=== PATIENT | female | born 1985 | race Caucasian/White ===

== ENCOUNTER 2016-12-24 18:23 | Observation (INO) | payer BC ==
[~2016-12-24] VITALS: Ht 167.6 cm; Wt 107.5 kg
[~2016-12-24 18:23] MED LIST: CYCL10TA2 PO; NAPR500T PO; PROM25TA10 PO; SULF1TAB24 PO; TRAM-29 PO
--- NOTE | 2016-12-24 18:29 | ED.ADGEN ---
Past History Past Medical History: Anemia, Asthma, Depression, Hypothyroid, Other Past Surgical History: , Tubal ligation, Other Alcohol Use: Rarely Drug Use: None Adult General Chief Complaint Chief Complaint Suicidal ideation [facility] HPI Patient is a pleasant 31-year-old female with history of depression and cerebral palsy chronic lower leg pain presents with suicidal ideation with plan today. Her last several days patient has become increasing depressed over the sickness of her child is personally in the PICU. Patient is receiving therapy and treatment for cerebral palsy and depression to include electrocution therapy for her depression at [facility]. She is also on Librium and lithium to complain of her symptoms. She denies any changing of her medication doses she denies any financial or legal problems. She's not had any relationship problems with her family. At this time family is supportive and is one who called EMS which she stated her suicidal intent and plan to cut herself with razor blades. When EMS arrived she had razor blades in her hand. She has a history of prior psychiatric evaluation, admission and prior suicidal attempt. She has no firearms at home. Review of Systems Review of Systems Constitutional: Denies fever or chills complains of fatigue Eyes: Denies change in visual acuity, redness, or eye pain HENT: Denies nasal congestion or sore throat [] Respiratory: Denies cough or shortness of breath [] Cardiovascular: No additional information not addressed in HPI [] GI: Denies abdominal pain, nausea, vomiting, bloody stools or diarrhea [] : Denies dysuria or hematuria [] Musculoskeletal: Denies back pain or joint pain [] Integument: Denies rash or skin lesions [] Neurologic: Denies headache, focal weakness or sensory changes [] Endocrine: Denies polyuria or polydipsia [] Current Medications Current Medications Current Medications Medications (Trade) Dose Ordered Sig/Jos Eraul Start Time Stop Time Status Last Admin Dose Admin Sodium Chloride (Normal Saline Flush) 10 ml QSHIFT PRN 12/24/16 18:30 Allergies Allergies Allergies Coded Allergies Type Severity Reaction Last Updated Verified Penicillins Allergy Severe Anaphylaxis 01/25/16 Yes lidocaine Allergy Severe Anaphylaxis 01/25/16 Yes procaine Allergy Severe Anaphylaxis 01/25/16 Yes Physical Exam Physical Exam Constitutional: Well developed, well nourished, patient is sleepy but arousable nontoxic in appearance. HENT: Normocephalic, atraumatic, bilateral external ears normal, mucous members are dry. Eyes: PERRLA, EOMI, conjunctiva normal, no discharge. [] Neck: Normal range of motion, no tenderness, supple, no stridor. [] Cardiovascular:Heart rate regular rhythm, no murmur [] Lungs & Thorax: Bilateral breath sounds clear to auscultation [] Abdomen: Bowel sounds normal, soft, no tenderness, no masses, no pulsatile masses. [] Skin: Warm, dry, no erythema, no rash. No evidence of self-inflicted wounds or lacerations. Back: No tenderness, no CVA tenderness. [] Extremities: No tenderness, no cyanosis, no clubbing, ROM intact, no edema. [] Neurologic: Alert and oriented X 3, normal motor function, normal sensory function, no focal deficits noted. [] Psychologic: Patient has a blunted affect and seems depressed but has normal judgment. She is forthcoming with information and states no altered mental status she is awake alert and oriented 3. Current Patient Data Vital Signs Vital Signs Date Time Temp Pulse Resp B/P Pulse Ox O2 Delivery O2 Flow Rate FiO2 12/24/16 18:34 97.4 64 18 97 Room Air Lab Results Laboratory Tests Test 12/24/16 18:30 12/24/16 18:55 12/24/16 18:56 Urine Collection Type Unknown Urine Color Yellow Urine Clarity Hazy Urine pH 6.5 Urine Specific [place] 1.015 Urine Protein Neg (NEG-TRACE) Urine Glucose (UA) Negmg/dL (NEG) Urine Ketones (Stick) Negmg/dL (NEG) Urine Blood Neg (NEG) Urine Nitrite Neg (NEG) Urine Bilirubin Neg (NEG) Urine Urobilinogen Dipstick 1mg/dL (0.2 mg/dL) Urine Leukocyte Esterase Neg (NEG) Urine RBC 1-2/HPF (0-2) Urine WBC 5-10/HPF (0-4) Urine Squamous Epithelial Cells Many/LPF Urine Bacteria Mod/HPF (0-FEW) Urine Opiates Screen Neg (NEG) Urine Methadone Screen Neg (NEG) Urine Barbiturates Neg (NEG) Urine Phencyclidine Screen Neg (NEG) Urine Amphetamine/Methamphetamine Neg (NEG) Urine Benzodiazepines Screen Neg (NEG) Urine Cocaine Screen Neg (NEG) Urine Cannabinoids Screen Neg (NEG) Urine Ethyl Alcohol Neg (NEG) White Blood Count 11.1x10^3/uL (4.0-11.0) H Red Blood Count 5.02x10^6/uL (3.50-5.40) Hemoglobin 10.3g/dL (12.0-15.5) L Hematocrit 33.9% (36.0-47.0) L Mean Corpuscular Volume 68fL (79-100) L Mean Corpuscular Hemoglobin 21pg (25-35) L Mean Corpuscular Hemoglobin Concent 30g/dL (31-37) L Red Cell Distribution Width 17.5% (11.5-14.5) H Platelet Count 394x10^3/uL (140-400) Neutrophils (%) (Auto) 76% (31-73) H Lymphocytes (%) (Auto) 19% (24-48) L Monocytes (%) (Auto) 4% (0-9) Eosinophils (%) (Auto) 1% (0-3) Basophils (%) (Auto) 0% (0-3) Neutrophils # (Auto) 8.4x10^3uL (1.8-7.7) H Lymphocytes # (Auto) 2.1x10^3/uL (1.0-4.8) Monocytes # (Auto) 0.5x10^3/uL (0.0-1.1) Eosinophils # (Auto) 0.1x10^3/uL (0.0-0.7) Basophils # (Auto) 0.0x10^3/uL (0.0-0.2) Platelet Estimate Increased (ADEQUATE) Polychromasia Present Hypochromasia Mod Anisocytosis Slight Microcytosis Slight Salicylates Level 0.9mg/dL (2.8-20.0) L Salicylate Last Dose Date 12/24/16 Salicylate Last Dose Time 1200 Acetaminophen Level < 2.0mcg/mL (10-30) L Acetaminophen Last Dose Date 12/24/16 Acetaminophen Last Dose Time Unknown Ethyl Alcohol Level < 10mg/dL (0-10) POC Urine HCG, Qualitative hcg negative (Negative) EKG EKG [] Radiology/Procedures Radiology/Procedures [] Impressions: Depression with suicidal ideation and plan with attempt Course & Med Decision Making Course & Med Decision Making Pertinent Labs and Imaging studies reviewed. (See chart for details) [Patient with a stated suicidal plan or prior attempts high-risk behavior history depression with family concerning enough given her actions at home to report her to the emergency department and EMS evaluation. Patient admits that she still actively suicidal with request for admission to the hospital for treatment. Patient's labs are unremarkable lithium level still pending at this time] at this point patient is compliant she is eating without issue we will consult psychiatry for placement and assessment and inpatient facility. Time is approximately 845. Psychiatric facility return phone call at approximately 9: 30 but he does know that the psychiatric physician would be available to interview her 20 minutes after that. Psychiatrist called back approximately 10: 10 PM tonight and is presently interviewing the patient. He has been hemodynamic stable currently resting quietly sleeping the last hour. Time is 1020 Dr. ESTRADA agreed with the patient's need for admission given severity of symptoms specific plan threat as well as limited support at home. We will attempt to locate a facility to admit this patient. Patient is awaiting admission witting placement 7 hours here in the emergency department we will admit for observation here at our facility under the care of Dr. MCKAY. I'm is now 1:33 AM Final Impression Final Impression Suicidal ideation, acute adjustment disorder [] Problems: Dragon Disclaimer Dragon Disclaimer This electronic medical record was generated, in whole or in part, using a voice recognition dictation system. JAD GUO MD Dec 24, 2016 18:28
[2016-12-24] MEDS: 0.9 % SODIUM CHLORIDE 10 ML DISP.SYRIN. IV PRN (19:16)
[2016-12-24 19:19] LABS: AMPHETAMINE/METHAMPHETAMINE NEG (NEG); BARBITURATES NEG (NEG); BENZODIAZEPINES NEG (NEG); CANNABINOIDS NEG (NEG); COCAINE NEG (NEG); METHADONE NEG (NEG); OPIATES NEG (NEG); PHENCYCLIDINE NEG (NEG)
[2016-12-24 19:24] LABS: BASO % 0 % (0-3); EOS # 0.1 x10^3/uL (0.0-0.7); EOS % 1 % (0-3); HEMATOCRIT 33.9 % (36.0-47.0); HEMOGLOBIN 10.3 g/dL (12.0-15.5); LYMPH # 2.1 x10^3/uL (1.0-4.8); LYMPH % 19 % (24-48); MEAN CORPUSCULAR HEMOGLOBIN 21 pg (25-35); MEAN CORPUSCULAR HGB CONC 30 g/dL (31-37); MEAN CORPUSCULAR VOLUME 68 fL (79-100); MONO # 0.5 x10^3/uL (0.0-1.1); MONO % 4 % (0-9); NEUT # 8.4 x10^3uL (1.8-7.7); NEUT % 76 % (31-73); PLATELET COUNT 394 x10^3/uL (140-400); RED BLOOD COUNT 5.02 x10^6/uL (3.50-5.40); RED CELL DISTRIBUTION WIDTH 17.5 % (11.5-14.5); WHITE BLOOD COUNT 11.1 x10^3/uL (4.0-11.0)
[2016-12-24 19:33] LABS: ETHANOL < 10 mg/dL (0-10); SALIC 0.9 mg/dL (2.8-20.0)
[2016-12-24 19:36] LABS: ACETAMIN < 2.0 mcg/mL (10-30)
[2016-12-24 19:41] LABS: CLARITY,URINE HAZY; COLOR,URINE YELLOW
[2016-12-24 19:42] LABS: BACTERIA,URINE MOD /HPF (0-FEW); BILIRUBIN,URINE NEG (NEG); GLUCOSE,URINE NEG (NEG); NITRITE,URINE NEG (NEG); SQUAMOUS EPITHELIAL CELL,UR MANY /LPF; UROBILINOGEN,URINE 1 mg/dL (0.2 mg/dL)
--- NOTE | 2016-12-24 20:43 | ACF ---
Admission Criteria Forms PSYCHIATRIC DISORDERS Clinical Indications for Inpatient Care (Place 'X' for any and all applicable criteria): Ongoing inpatient care may be needed for ANY ONE of the following(1)(2)(3)(4)(6) (7)(8): [ ]I. Danger to self or others not manageable at lower level of care. [ ]II. Grave disability (eg, inability to perform self care necessary at lower level of care) [ ]III. Agitation or inappropriate behavior interfering with care for primary condition (eg, attempting to discontinue lines or drains prematurely, unable to cooperate with respiratory care) [ ]IV. Severe disability or disorder indicated by ALL of the following: [ ]a) Severe behavioral health disorder-related symptoms or condition indicated by ANY ONE of the following: [ ]i) Severe problem with cognition, memory, judgment, or impulse control [ ]ii) Severe clinical manifestations (eg, hallucinations, delusions, other acute psychotic symptoms, logan, extreme agitation or anxiety) [ ]b) Patient management at lower level of care is not feasible until acute intervention or modification is initiated. Extended stay beyond goal length of stay for the primary condition may be indicated when ANY ONE of the following is present: (1)(2)(3)(4): [ ]a) Patient is a danger to self or others and not manageable at lower level of care. [ ]b) Behavior crisis management, including physical or chemical restraints, is required and is not available at a lower level of care. [ ]c) Behavioral symptoms (e.g., agitation, somnolence, inappropriate behavior) are present, and are not manageable at a lower level of care. [ ]d) Patient cannot understand follow-up treatment and crisis plan. [ ]e) Provider and supports are not sufficiently available at lower level of care. [ ]f) Patient cannot participate (e.g., verify absence of plan for harm) and is in needed of monitoring. The original [employer] content created by [employer] has been revised. The portions of the content which have been revised are identified through the use of italic text or in bold, and [facility] has neither reviewed nor approved the modified material. All other unmodified content is copyright [facility]. Please see references footnoted in the original [facility] edition 2016 TANVIR SCHWARZ Dec 24, 2016 20:43
[2016-12-24 21:57] LABS: ANISOCYTOSIS SLIGHT; PLT ESTIMATE INCREASED (ADEQUATE)
[2016-12-24 21:58] LABS: HYPOCHROMIA MOD; MICROCYTOSIS SLIGHT; POLYCHROMASIA PRESENT
[2016-12-25 02:10] VITALS: BP 122/76
[2016-12-25 02:20] VITALS: BP 120/66
--- NOTE | 2016-12-25 02:28 | ACF ---
Admission Criteria Forms [facility] Clinical Indications for Admission to Inpatient Care (Place 'X' for any and all applicable criteria): Hospital admission is needed for appropriate care of the patient because of ANY ONE of the following[A] (3)(4)(5): [X]I. Inpatient behavioral care is needed as indicated by ALL of the following: [X]a) Treatment is needed because of patient risk due to ANY ONE of the following: [X]i) Imminent danger to self due to ANY ONE of the following ( 7)(8): [ ]1) Imminent risk for recurrence of a suicide attempt or act of serious self-harm as indicated by ALL of the following: [ ]A. Very recent suicide attempt or deliberate act of serious self-harm [ ]B. Absence of sufficient relief of the action' s precipitants [ ]2) Current plan for suicide or serious self-harm [X]3) Persistent thoughts of suicide or serious self- harm that cannot be adequately monitored at a lower level of care because of ANY ONE of the following: [ ]A. Insufficient behavioral care provider availability [ ]B. Inadequate patient support system [X]C. Patient characteristics such as high impulsivity or unreliability [ ]D. Ruminative flooding; uncontrollable and overwhelming profusion of negative thoughts [ ]E. Frantic hopelessness; fatalistic conviction that life will not improve along with oppressive sense of entrapment and doom [ ]F. Active substance use disorder is present [ ]G. Ready access to lethal means is present [ ]ii) Imminent danger to others due to ANY ONE of the following( 10)(11): [ ]1) Imminent risk for recurrence of an attempt to seriously harm another as indicated by ALL of the following: [ ]A. Very recent attempt to seriously harm another [ ]B. Absence of sufficient relief of the action' s precipitants [ ]2) Current plan for homicide or seriously harming another [ ]3) Command auditory hallucination for serious self harm to self or others [ ]4) Persistent thoughts of homicide or seriously harming another that cannot be adequately monitored at a lower level of care because of ANY ONE of the following: [ ]A. Insufficient behavioral care provider availability [ ]B. Inadequate patient support system [ ]C. Patient characteristics such as high impulsivity or unreliability [ ]D. Active substance use disorder is present [ ]E. Ready access to lethal means is present [ ]iii) Behavioral health disorder is present with ALL of the following: (12)(16)(17)(18): [ ]1) Severe psychiatric or behavioral symptoms are present , including ANY ONE of the following: [ ]A. Hallucinations that are very bothersome to patient or are associated with severe pressure to respond to voices(17)(18) [ ]B. Delusions that are very bothersome to patient or are associated with severe pressure to act on beliefs(17)(18) [ ]C. Disorganized speech that is almost impossible to follow(17)(18) [ ]D. Motor behavior that is almost constantly abnormal or bizarre or catatonic(17)(18) [ ]E. Severe negative symptoms (eg, severe decrease in facial expression or self-initiated behavior)(17)(18) [ ]F. Severe logan (eg, daily periods of extensive mood elevation or irritability)(19)(20)(21)(22) [ ]G. Severe depression (eg, daily symptoms of deep hopelessness)[C] [ ]H. Severe anxiety[D] [ ]I. Severe comorbid substance use disorder with inability to control use, intense withdrawal symptoms, or extreme negative impact on primary psychiatric disorder(2)(7)(25) [ ]J. Severe impairment in cognition, memory, judgment, or impulse control(26)(27) [ ]K. Severe impairment in behavior, including physical or verbal aggression, disruptive behaviors, or internal or external anger manifestations (eg, rumination or outbursts)(28) [ ]L. Other psychiatric symptoms which are acute or represent worsening over baseline (eg, hyperactivity, agitation, obsessions, or compulsions)(29)(30)(31) [ ]2) Severe dysfunction in daily living is present as indicated by ANY ONE of the following: [ ]A. Extreme deterioration in social interactions ( eg, threatening behaviors with little or no provocation) [ ]B. Complete withdrawal from all social interactions [ ]C. Complete neglect of self-care with associated impairment in physical status [ ]D. Extreme disruption in vegetative function (eg , life-sustaining functions such as eating) [ ]E. Complete inability to maintain any appropriate aspect of personal responsibility in any adult roles (eg, occupational, parental) [X]b) Treatment situation and needs are appropriate for level as indicated by ANY ONE of the following(13)(16): [ ]i) Patient unwilling to participate voluntarily and requires treatment (eg, legal commitment) in an involuntary unit [ ]ii) Voluntary treatment at lower level not feasible (e.g., very short-term crisis intervention or residential care unavailable or unacceptable for patient condition) [ ]iii) Need for physical restraint, seclusion, or other involuntary control (e.g., actively violent patient and adequate clinical rapport cannot be established to control violence) (25) [X]iv) [id number] medical or nursing care to address symptoms and initiate intervention is required; specific need has been identified [ ]II. Delirium as described by ANY ONE of the following (26)(27)(28): [ ]a) Delirium due to alcohol or sedative [B] withdrawal (16)(29)(30)( 31) [ ]b) Delirium of uncertain etiology that has not responded to appropriate treatment in emergency department or urgent care setting (32)(33) [ ]c) Delirium that prevents performance of a life-sustaining function (eg, feeding or hydrating oneself) (9) [ ]III. Administration of a somatic treatment that requires [id number] medical or nursing care because of a potential adverse physical effect or medical comorbidity(7) [ ]IV. Behavioral Health condition, symptom, or finding for which emergency and observation care have failed or are not considered appropriate The original [facility] content created by [employer] has been revised. The portions of the content which have been revised are identified through the use of italic text or in bold, and [facility] has neither reviewed nor approved the modified material. All other unmodified content is copyright [facility]. Please see references footnoted in the original [facility] edition 2016 Admission Criteria Met?: Yes TANVIR SCHWARZ Dec 25, 2016 02:28
[2016-12-25] MEDS: 0.9 % SODIUM CHLORIDE 10 ML DISP.SYRIN. IV PRN (04:27)
[2016-12-25 08:04] VITALS: BP 112/57
[2016-12-25] MEDS ORDERED: PRAZ1CAP2 PO (09:53)
[2016-12-25] MEDS ORDERED: ALPR0.5T6 PO ×2 (09:53)
[2016-12-25] MEDS ORDERED: LITH600C PO (09:54)
[2016-12-25] MEDS ORDERED: HYDR25CA75 PO (09:59)
[2016-12-25] MEDS ORDERED: LURA80TA PO (09:59)
[2016-12-25] MEDS ORDERED: GABA-585 PO (09:59)
[2016-12-25] MEDS ORDERED: CELE100C PO (10:01)
[2016-12-25] MEDS ORDERED: TIZA4CAP3 PO (10:01)
[2016-12-25] MEDS ORDERED: VILA10TA PO (10:12)
[2016-12-25] MEDS ORDERED: LEVO175T5 PO (11:00)
[2016-12-25 11:20] VITALS: BP 116/76
[2016-12-25 12:36] LABS: CREATININE 0.9 mg/dL (0.6-1.0); GFR 72.6; POTASSIUM 3.6 mmol/L (3.5-5.1)
--- NOTE | 2016-12-25 15:54 | HP ---
ADMIT DATE: 12/25/2016 HISTORY OF PRESENT ILLNESS: This is a 31-year-old female patient with a past medical history significant for depression, cerebral palsy, chronic lower leg pain, who presents to the Emergency Room with suicidal ideation with a plan. Over the last several days, the patient has become increasingly depressed over the sickness of her child, who is presently in the PICU at [facility]. She apparently receives her therapy and treatment for cerebral palsy and depression that include electroconvulsive therapy for her depression at [facility]. She is also on lithium. She apparently denied any change in her medication. Denies any financial or legal problem. She apparently does have a problem with her that she said that he is accusing her for the cause of the problem for her child, although according to the Emergency Room physician she has a very supportive family and her is the one who called the EMS. She stated her suicidal intent and plan to cut herself with a razor blade. When the emergency medical service personnel arrived, she has had razor blades in her hand. She apparently has had previous suicidal attempt. At that time, she did actually cut her wrist and was admitted to this [facility]. The patient admits that she is still actively suicidal; we will request for admission to a hospital for treatment. All her lab work including her lithium levels were within normal range and the patient apparently is compliant. She is eating without issues and apparently a psychiatrist was consulted and the psychiatrist called back approximately at after 10 p.m. and he apparently agreed with the patient's need for admission given the severity of her symptoms, specifically plan and threat as well as limited support at home and basically the patient was admitted for observation and awaiting for placement in an inpatient psychiatric unit. PAST MEDICAL HISTORY: Significant for depression, cerebral palsy, hypothyroidism, chronic lower extremity pain. PAST SURGICAL HISTORY: Significant for 2 C-sections. ALLERGIES: She is allergic to PENICILLIN, LIDOCAINE, and PROCAINE. MEDICATIONS: She is currently on the following medications: She is on alprazolam 0.5 mg b.i.d., alprazolam 0.5 mg at bedtime as needed, Celebrex 100 mg daily, gabapentin 100 mg at bedtime, hydroxyzine pamoate 25 mg 3 times a day, levothyroxine 175 mcg once a day, lithium carbonate 600 mg p.o. b.i.d., lurasidone 80 mg daily, prazosin 1 mg at bedtime, tizanidine 4 mg every 8 hours and Viibryd 20 mg daily. FAMILY HISTORY: She has 1 younger brother, who is healthy. Her father is alive at age of 56 and know to have hypertension. Mother is alive and known to have hypothyroidism. SOCIAL HISTORY: She is , has 4 children, one of them the youngest is adopted. She does not smoke, drink alcohol or use any recreational drugs. REVIEW OF SYSTEMS: As per history of present illness. PHYSICAL EXAMINATION: GENERAL: On examining her, she looked well and was clearly in no apparent respiratory distress, slightly pale, but not jaundiced, cyanosis, or thyromegaly. No jugular venous distension. No lower limb edema. VITAL SIGNS: Her heart rate was 64, blood pressure was 118/66, temperature was 97.4, respiratory rate was 18 and oxygen saturation was 98%. HEAD, EYES, EARS, NOSE AND THROAT: Showed normocephalic, atraumatic. NECK: Supple. HEART: Showed normal first and second heart sounds with no gallop, rub or murmur. CHEST: Clear to auscultation. No crepitation or rhonchi. ABDOMEN: Distended, soft, nontender. No guarding or rigidity. No organomegaly. All hernial orifices were intact. NEUROLOGIC: She is alert and oriented x 3, normal motor and sensory function. No focal neurological deficit. PSYCHOLOGICAL: The patient is blunted, obstructing and is very depressed. LABORATORY DATA: While in the Emergency Room, she has had lab work done that showed a white cell count of 11,100, hemoglobin 10, hematocrit 33, MCV 68 and platelet count of 397,000. Her chemistry showed a serum sodium 140, potassium 3.6, chloride 106, bicarbonate 25, anion gap of 9, BUN 7, creatinine 0.9, estimated GFR was 72 mL per minute. Her glucose was 97 and calcium was 9. Urinalysis was essentially unremarkable. Her urine test was negative. The urine was yellow, hazy with a pH of 6.5, specific gravity of 1.015. The urine was negative for protein, glucose, ketones, blood, nitrite and leukocyte esterase. There are 1-2 RBCs, 5-10 WBCs, moderate amount of bacteria. Her urine toxicology screen was negative. IMPRESSION: In summary, this is a 31-year-old female patient, who came in with suicidal ideation with plans to cut herself with razors. She has other medical problems that include cerebral palsy, severe depression, and hypothyroidism. PLAN: To obviously continue to observe her, await admission to an inpatient psychiatric for inpatient psychiatric stabilization. CORRIE MCKAY MD DR: CHRISTINE/kinsey JOB#: [id number] / [id number]
--- NOTE | 2016-12-25 18:03 | DS ---
DATE OF DISCHARGE: 12/25/2016 HOSPITAL COURSE: The patient is a 31-year-old female patient who was admitted for observation as she admits that she is actively suicidal and requested admission to hospital for treatment. She apparently has a plan to slit her wrist with razor blade and she was accepted at the [facility] inpatient psychiatric unit and will be transferred there this afternoon. PHYSICAL EXAMINATION: GENERAL: On examining her this afternoon, she looked well and was clearly in no apparent respiratory distress, slightly pale, but no jaundice, cyanosis, or thyromegaly. No jugular venous distension. No limb edema. VITAL SIGNS: Her heart rate was 66, blood pressure 116/76, temperature was 98.1, respiratory rate was 18 and oxygen saturation was 97%. HEAD, EYES, EARS, NOSE AND THROAT: Normocephalic, atraumatic. NECK: Supple. HEART: Showed normal first and second heart sounds with no gallop, rub or murmur. CHEST: Clear to auscultation. No crepitation or rhonchi. ABDOMEN: Distended, soft, nontender. NEUROLOGIC: She is awake, alert, responding appropriately, answered questions appropriately. Cranial nerves intact. She moves extremities without difficulty. She ambulates without assistance or assistive devices; however, she has very flat affect; however, her judgment is normal and she is forthcoming with all the information and she is awake, alert, oriented x 3. LABORATORY DATA: She has had no more lab work done this morning. DISCHARGE MEDICATIONS: The patient will be discharged to [facility] inpatient psychiatric unit to continue on alprazolam 0.5 mg b.i.d., alprazolam 0.5 mg at bedtime, Celebrex 100 mg daily, gabapentin 100 mg at bedtime, hydroxyzine pamoate 25 mg 3 times a day, levothyroxine sodium 175 mcg once a day, lithium carbonate 600 mg twice a day, Latuda 80 mg once a day, prazosin 1 mg at bedtime, tizanidine 4 mg every 8 hours and Viibryd 20 mg once a day. FINAL DISCHARGE DIAGNOSES: Suicidal ideation with a plan, depression, hypothyroidism and cerebral palsy. CORRIE MCKAY MD DR: CHRISTINE/kinsey JOB#: [id number] / [id number]
== END 2016-12-25 15:05 | disposition short-term general hospital (02) ==
LOC: ER 18:23 → ICU 12-25 01:28
PROVIDERS: ADMIT Internal Medicine; ATTEND Internal Medicine
DX: R45.851 Suicidal ideations (principal); F32.9 Major depressive disorder, single episode, unspecified; E03.9 Hypothyroidism, unspecified; G80.9 Cerebral palsy, unspecified; J45.909 Unspecified asthma, uncomplicated; G89.29 Other chronic pain; Z82.49 Family history of ischemic heart disease and other diseases of the circulatory system
CPT/HCPCS: 36415; 80048; 80178; 81001; 81025; 84443; 85008; 85027; 87641; 99285; G0378; G0480; G0481; G6038; G0379; 80196

== ENCOUNTER 2017-02-10 10:50 | Emergency (ER) | payer BC, OTHER ==
[~2017-02-10 10:50] MED LIST changes: +ALPR0.5T6 PO; +CELE100C PO; +CYCL-331 PO; -CYCL10TA2 PO; +GABA-585 PO; +HYDR25CA75 PO; +LEVO175T5 PO; +LITH600C PO; +LURA80TA PO; +PRAZ1CAP2 PO; +TIZA4CAP3 PO; -TRAM-29 PO; +TRAM-48 PO; +VILA10TA PO
--- NOTE | 2017-02-10 11:15 | ED.ADGEN ---
Past History Past Medical History: Depression, Other (CARLOS ALBERTO RASCON MD) Past Surgical History: , Tubal ligation, Other (CARLOS ALBERTO RASCON MD) Smoking: Non-smoker Alcohol Use: None Drug Use: None (CARLOS ALBERTO RASCON MD) Adult General Chief Complaint Chief Complaint Depression and suicidal ideation (CARLOS ALBERTO RASCON MD) HPI HPI Patient is a 31 year old mL who presents with progressive depression and suicidal ideation over the last 2-3 days only plan was consideration of cutting on her wrists which she has attempted in the past but not today. Denies any auditory or visual hallucinations or homicidal ideation. Exacerbating factor was legal problems in appearance in court today. Denies any overdose of pills today. (CARLOS ALBERTO RASCON MD) Review of Systems Review of Systems Constitutional: Denies fever or chills [] Eyes: Denies change in visual acuity, redness, or eye pain [] HENT: Denies nasal congestion or sore throat [] Respiratory: Denies cough or shortness of breath [] Cardiovascular: No additional information not addressed in HPI [] GI: Denies abdominal pain, nausea, vomiting, bloody stools or diarrhea [] : Denies dysuria or hematuria [] Musculoskeletal: Denies back pain or joint pain [] Integument: Denies rash or skin lesions [] Neurologic: Denies headache, focal weakness or sensory changes [] Endocrine: Denies polyuria or polydipsia [] (CARLOS ALBERTO RASCON MD) Allergies Allergies Allergies Coded Allergies Type Severity Reaction Last Updated Verified Penicillins Allergy Severe Anaphylaxis 01/25/16 Yes lidocaine Allergy Severe Anaphylaxis 01/25/16 Yes procaine Allergy Severe Anaphylaxis 01/25/16 Yes (DARIANA PENG DO) Physical Exam Physical Exam Constitutional: Well developed, well nourished, no acute distress, non-toxic appearance. [] HENT: Normocephalic, atraumatic, bilateral external ears normal, oropharynx moist, no oral exudates, nose normal. [] Eyes: PERRLA, EOMI, conjunctiva normal, no discharge. [] Neck: Normal range of motion, no tenderness, supple, no stridor. [] Cardiovascular:Heart rate regular rhythm, no murmur [] Lungs & Thorax: Bilateral breath sounds clear to auscultation [] Abdomen: Bowel sounds normal, soft, no tenderness, no masses, no pulsatile masses. [] Skin: Warm, dry, no erythema, no rash. [] Back: No tenderness, no CVA tenderness. [] Extremities: No tenderness, no cyanosis, no clubbing, ROM intact, no edema. [] Neurologic: Alert and oriented X 3, normal motor function, normal sensory function, no focal deficits noted. [] Psychologic: Affect depressed, judgement normal, mood depressed; suicidal ideation; denies homicidal ideation, auditory or visual hallucinations.. [] (CARLOS ALBERTO RASCON MD) Current Patient Data Vital Signs Vital Signs Date Time Temp Pulse Resp B/P (MAP) Pulse Ox O2 Delivery O2 Flow Rate FiO2 02/10/17 18:46 84 20 118/80 (93) 100 Room Air 02/10/17 11:08 98.6 (DARIANA PENG DO) Lab Results Laboratory Tests Test 02/10/17 11:37 02/10/17 12:30 White Blood Count 9.5 x10^3/uL (4.0-11.0) Red Blood Count 4.60 x10^6/uL (3.50-5.40) Hemoglobin 9.8 g/dL (12.0-15.5) L Hematocrit 31.2 % (36.0-47.0) L Mean Corpuscular Volume 68 fL (79-100) L Mean Corpuscular Hemoglobin 21 pg (25-35) L Mean Corpuscular Hemoglobin Concent 31 g/dL (31-37) Red Cell Distribution Width 19.5 % (11.5-14.5) H Platelet Count 284 x10^3/uL (140-400) Neutrophils (%) (Auto) 70 % (31-73) Lymphocytes (%) (Auto) 24 % (24-48) Monocytes (%) (Auto) 4 % (0-9) Eosinophils (%) (Auto) 2 % (0-3) Basophils (%) (Auto) 1 % (0-3) Neutrophils # (Auto) 6.7 x10^3uL (1.8-7.7) Lymphocytes # (Auto) 2.2 x10^3/uL (1.0-4.8) Monocytes # (Auto) 0.4 x10^3/uL (0.0-1.1) Eosinophils # (Auto) 0.2 x10^3/uL (0.0-0.7) Basophils # (Auto) 0.1 x10^3/uL (0.0-0.2) Platelet Estimate Adequate (ADEQUATE) Large Platelets Occ Polychromasia Mod Hypochromasia Slight Anisocytosis Mod Microcytosis Mod Ovalocytes Occ Sodium Level 140 mmol/L (136-145) Potassium Level 3.5 mmol/L (3.5-5.1) Chloride Level 105 mmol/L (98-107) Carbon Dioxide Level 28 mmol/L (21-32) Anion Gap 7 (6-14) Blood Urea Nitrogen 9 mg/dL (7-20) Creatinine 0.8 mg/dL (0.6-1.0) Estimated GFR (Cockcroft-Gault) 83.1 BUN/Creatinine Ratio 11 (6-20) Glucose Level 87 mg/dL (70-99) Calcium Level 8.8 mg/dL (8.5-10.1) Total Bilirubin 0.3 mg/dL (0.2-1.0) Aspartate Amino Transferase (AST) 16 U/L (15-37) Alanine Aminotransferase (ALT) 31 U/L (14-59) Alkaline Phosphatase 125 U/L (46-116) H Total Protein 7.5 g/dL (6.4-8.2) Albumin 3.7 g/dL (3.4-5.0) Albumin/Globulin Ratio 1.0 (1.0-1.7) [place] Level 0.7 mmol/L (0.6-1.2) [place] Last Dose Date 02/09/17 [place] Last Dose Time 2030 Ethyl Alcohol Level < 10 mg/dL (0-10) Urine Collection Type Unknown Urine Color Yellow Urine Clarity Hazy Urine pH 6.5 Urine Specific [place] 1.015 Urine Protein Neg (NEG-TRACE) Urine Glucose (UA) Neg mg/dL (NEG) Urine Ketones (Stick) Neg mg/dL (NEG) Urine Blood Neg (NEG) Urine Nitrite Neg (NEG) Urine Bilirubin Neg (NEG) Urine Urobilinogen Dipstick 0.2 mg/dL (0.2 mg/dL) Urine Leukocyte Esterase Neg (NEG) Urine RBC 0 /HPF (0-2) Urine WBC 1-4 /HPF (0-4) Urine Squamous Epithelial Cells Mod /LPF Urine Bacteria Few /HPF (0-FEW) Urine Opiates Screen Neg (NEG) Urine Methadone Screen Neg (NEG) Urine Barbiturates Neg (NEG) Urine Phencyclidine Screen Neg (NEG) Urine Amphetamine/Methamphetamine Neg (NEG) Urine Benzodiazepines Screen Pos (NEG) Urine Cocaine Screen Neg (NEG) Urine Cannabinoids Screen Neg (NEG) Urine Ethyl Alcohol Neg (NEG) (DARIANA PENG DO) EKG EKG [] (CARLOS ALBERTO RASCON MD) Radiology/Procedures Radiology/Procedures [] (CARLOS ALBERTO RASCON MD) Course & Med Decision Making Course & Med Decision Making Pertinent Labs and Imaging studies reviewed. (See chart for details) [] (CARLOS ALBERTO RASCON MD) Course & Med Decision Making Pt signed out to me at 1800 shift change, see Dr Rascon note for data not contained herein. Pt is 31/F with SI, Telepsych reportedly recommends inpt placement. ED staff is working on finding pt a bed. Telepsych Report Diagnosis: Bipolar II Disorder, r/o BPD. Recommendation: Inpatient Psychiatric Evaluation/tx. Pt calm cooperative awaiting placement. 0005: Call received from [facility], patient has been accepted by Dr. Hoyos for inpatient psychiatric treatment. Patient continues to rest comfortably, EMS called for transfer. (DARIANA PENG DO) Final Impression Final Impression Acute on chronic depression, suicidal ideation [] Problems: (CARLOS ALBERTO RASCON MD) Dragon Disclaimer Dragon Disclaimer This electronic medical record was generated, in whole or in part, using a voice recognition dictation system. (CARLOS ALBERTO RASCON MD) Departure Time of Disposition: 18:46 (DARIANA PENG DO) Disposition: 05 XFER OTHER Diagnosis: Bipolar II Disorder, SI Condition: GUARDED Additional Instructions: EMS transfer to [facility] for inpatient psychiatry evaluation, Dr Hoyos is accepting physician. CARLOS ALBERTO RASCON MD Feb 10, 2017 11:15 DARIANA PENG DO Feb 10, 2017 18:47
[2017-02-10 11:55] LABS: BASO # 0.1 x10^3/uL (0.0-0.2); BASO % 1 % (0-3); EOS # 0.2 x10^3/uL (0.0-0.7); EOS % 2 % (0-3); HEMATOCRIT 31.2 % (36.0-47.0); HEMOGLOBIN 9.8 g/dL (12.0-15.5); LYMPH # 2.2 x10^3/uL (1.0-4.8); LYMPH % 24 % (24-48); MEAN CORPUSCULAR HEMOGLOBIN 21 pg (25-35); MEAN CORPUSCULAR HGB CONC 31 g/dL (31-37); MEAN CORPUSCULAR VOLUME 68 fL (79-100); MONO # 0.4 x10^3/uL (0.0-1.1); MONO % 4 % (0-9); NEUT # 6.7 x10^3uL (1.8-7.7); NEUT % 70 % (31-73); PLATELET COUNT 284 x10^3/uL (140-400); RED CELL DISTRIBUTION WIDTH 19.5 % (11.5-14.5); WHITE BLOOD COUNT 9.5 x10^3/uL (4.0-11.0)
--- NOTE | 2017-02-10 12:00 | ACF ---
Admission Criteria Forms PSYCHIATRIC DISORDERS Clinical Indications for Inpatient Care (Place 'X' for any and all applicable criteria): Ongoing inpatient care may be needed for 1 or more of the following(1)(2)(3)(4)( 6)(7)(8): [X]I. Danger to self or others not manageable at lower level of care. [ ]II. Grave disability (eg, inability to perform self care necessary at lower level of care) [ ]III. Agitation or inappropriate behavior interfering with care for primary condition (eg, attempting to discontinue lines or drains prematurely, unable to cooperate with respiratory care) [ ]IV. Severe disability or disorder indicated by ALL of the following: [ ]a) Severe behavioral health disorder-related symptoms or condition indicated by 1 or more of the following: [ ]i) Severe problem with cognition, memory, judgment, or impulse control [ ]ii) Severe clinical manifestations (eg, hallucinations, delusions, other acute psychotic symptoms, logan, extreme agitation or anxiety) [ ]b) Patient management at lower level of care is not feasible until acute intervention or modification is initiated. Extended stay beyond goal length of stay for the primary condition may be needed untilALLof the following are present(1)(2)(3)(4)7)87)(23): [ ]a) Danger to self or others is absent or manageable at lower level of care [ ]b) Behavior crisis management, including physical or chemical restraints, is required and is not available at a lower level of care. [ ]c) Behavioral symptoms (e.g., agitation, somnolence, inappropriate behavior) are present, and are not manageable at a lower level of care. [ ]d) Patient cannot understand follow-up treatment and crisis plan. [ ]e) Provider and supports are sufficiently available at lower level of care. [ ]f) Patient can participate (e.g., verify absence of plan for harm) and is in needed of monitoring. The original [facility] [employer] content created by [employer] of [facility] [employer] has been revised. The portions of the content which have been revised are identified through the use of italic text, and [employer] license of [facility] [employer] has neither reviewed nor approved the modified material. All other unmodified content is copyright [facility] [employer] [facility]. Please see references footnoted in the original [facility] edition 2015 Admission Criteria Met?: Yes VIVEK NAVA Feb 10, 2017 12:00
[2017-02-10 12:04] LABS: ALBUMIN 3.7 g/dL (3.4-5.0); CALCIUM 8.8 mg/dL (8.5-10.1); CREATININE 0.8 mg/dL (0.6-1.0); GFR 83.1; POTASSIUM 3.5 mmol/L (3.5-5.1); TOTAL BILIRUBIN 0.3 mg/dL (0.2-1.0); TOTAL PROTEIN 7.5 g/dL (6.4-8.2)
[2017-02-10 12:49] LABS: BACTERIA,URINE FEW /HPF (0-FEW); BILIRUBIN,URINE NEG (NEG); CLARITY,URINE HAZY; COLOR,URINE YELLOW; GLUCOSE,URINE NEG (NEG); NITRITE,URINE NEG (NEG); RBC,URINE 0 /HPF (0-2); SQUAMOUS EPITHELIAL CELL,UR MOD /LPF; UROBILINOGEN,URINE 0.2 mg/dL (0.2 mg/dL)
[2017-02-10 12:51] LABS: AMPHETAMINE/METHAMPHETAMINE NEG (NEG); BARBITURATES NEG (NEG); BENZODIAZEPINES POS (NEG); CANNABINOIDS NEG (NEG); COCAINE NEG (NEG); METHADONE NEG (NEG); OPIATES NEG (NEG); PHENCYCLIDINE NEG (NEG)
[2017-02-10 13:01] LABS: HYPOCHROMIA SLIGHT; PLT ESTIMATE ADEQUATE (ADEQUATE)
[2017-02-10 13:02] LABS: ANISOCYTOSIS MOD; MICROCYTOSIS MOD
[2017-02-10 13:03] LABS: POLYCHROMASIA MOD
[2017-02-10 13:05] LABS: OVALOCYTES OCC
[2017-02-10 17:13] LABS: LI 0.7 mmol/L (0.6-1.2)
[2017-02-11 00:15] VITALS: BP 121/71
== END 2017-02-11 00:32 | disposition short-term general hospital (02) ==
LOC: ER 10:50
DX: F31.81 Bipolar II disorder (principal); R45.851 Suicidal ideations; Z88.0 Allergy status to penicillin; Z88.4 Allergy status to anesthetic agent
CPT/HCPCS: 36415; 80053; 80178; 80305; 81001; 85008; 85027; 99285; G0480; 80320; G0481

== ENCOUNTER 2017-05-05 10:43 | Emergency (ER) | payer OTHER, BC ==
[~2017-05-05] VITALS: Ht 167.6 cm; Wt 99.8 kg
--- NOTE | 2017-05-05 10:58 | PHYS DOC ---
Past History Past Medical History: Depression, Other Past Surgical History: , Tubal ligation, Other Smoking: Non-smoker Alcohol Use: None Drug Use: None Adult General HPI HPI Patient is a 31 year old F who presents with abdominal pain with nausea and vomiting and diarrhea for the past 10 days. Patient was sent in by her PCP after calling her family doctor this morning who told her she needed emergency room for further evaluation and management. Patient states that for the past 10 days she's been having persistent nausea/vomiting/diarrhea with some left lower quadrant abdominal pain. Patient unable to keep anything down. Patient had 2 C- sections in the past. Patient has no history of diabetes mellitus. Patient denies any fevers. Patient denies any chest pain or shortness of breath. Patient has no other complaints. Review of Systems Review of Systems GEN: Denies fevers, chills, sweats HEENT: Denies blurred vision, sore throat CV: Denies chest pain RESP: Denies shortness of air, cough GI: n/v/d with left lower quadrant abdominal pain NEURO: Denies confusion, dizziness MSK: Denies weakness, joint pain/swelling Current Medications Current Medications Current Medications Medications (Trade) Dose Ordered Sig/Jose Raul Start Time Stop Time Status Last Admin Dose Admin Sodium Chloride 1,000 ml @ 1,000 mls/hr 1X ONCE 05/05/17 11:00 05/05/17 11:59 UNV Allergies Allergies Allergies Coded Allergies Type Severity Reaction Last Updated Verified Penicillins Allergy Severe Anaphylaxis 01/25/16 Yes lidocaine Allergy Severe Anaphylaxis 01/25/16 Yes procaine Allergy Severe Anaphylaxis 01/25/16 Yes Physical Exam Physical Exam GEN.: No apparent distress. Alert and oriented. HEENT: Head is normocephalic, atraumatic NECK: Supple. LUNGS: CTAB. HEART: RRR, S1, S2 present. Peripheral pulses intact ABDOMEN: Soft, tenderness palpation left lower quadrant with no rebound tenderness and no abdominal distention. Positive bowel sounds. EXTREMITIES: Without any cyanosis. NEUROLOGIC: Normal speech, normal tone PSYCHIATRIC: Normal affect, normal mood. SKIN: No ulcerations Current Patient Data Vital Signs Laboratory Tests Test 05/05/17 10:59 05/05/17 11:05 05/05/17 11:15 White Blood Count 11.6 x10^3/uL Red Blood Count 5.43 x10^6/uL Hemoglobin 11.6 g/dL Hematocrit 37.1 % Mean Corpuscular Volume 69 fL Mean Corpuscular Hemoglobin 21 pg Mean Corpuscular Hemoglobin Concent 31 g/dL Red Cell Distribution Width 17.8 % Platelet Count 361 x10^3/uL Neutrophils (%) (Auto) 81 % Lymphocytes (%) (Auto) 14 % Monocytes (%) (Auto) 3 % Eosinophils (%) (Auto) 2 % Basophils (%) (Auto) 1 % Neutrophils # (Auto) 9.3 x10^3uL Lymphocytes # (Auto) 1.6 x10^3/uL Monocytes # (Auto) 0.3 x10^3/uL Eosinophils # (Auto) 0.3 x10^3/uL Basophils # (Auto) 0.1 x10^3/uL Platelet Estimate Adequate Hypochromasia Mod Anisocytosis Present Microcytosis Marked Sodium Level 139 mmol/L Potassium Level 4.0 mmol/L Chloride Level 104 mmol/L Carbon Dioxide Level 24 mmol/L Anion Gap 11 Blood Urea Nitrogen 6 mg/dL Creatinine 1.2 mg/dL Estimated GFR (Cockcroft-Gault) 52.1 BUN/Creatinine Ratio 5 Glucose Level 149 mg/dL Calcium Level 9.2 mg/dL Total Bilirubin 0.5 mg/dL Aspartate Amino Transf (AST/SGOT) 13 U/L Alanine Aminotransferase (ALT/SGPT) 26 U/L Alkaline Phosphatase 120 U/L Total Protein 8.0 g/dL Albumin 4.1 g/dL Albumin/Globulin Ratio 1.1 Lipase 77 U/L Urine Collection Type Unknown Urine Color Yellow Urine Clarity Cloudy Urine pH 5.5 Urine Specific [place] >=1.030 Urine Protein 100 mg/dl Urine Glucose (UA) Neg mg/dL Urine Ketones (Stick) Neg mg/dL Urine Blood Neg Urine Nitrite Neg Urine Bilirubin Neg Urine Urobilinogen Dipstick 0.2 mg/dL Urine Leukocyte Esterase Neg Urine RBC Rare /HPF Urine WBC Occ /HPF Urine Squamous Epithelial Cells Many /LPF Urine Bacteria Many /HPF Urine Mucus Marked /LPF Bedside Urine HCG, Qualitative hcg negative Current Medications Medications (Trade) Dose Ordered Sig/Jose Raul Route PRN Reason Start Time Stop Time Status Last Admin Dose Admin Sodium Chloride 1,000 ml @ 1,000 mls/hr 1X ONCE IV 05/05/17 11:00 05/05/17 11:59 DC 05/05/17 11:29 Ondansetron HCl (Zofran) 4 mg 1X ONCE IV 05/05/17 11:15 05/05/17 11:16 DC 05/05/17 11:29 Iohexol (Omnipaque 300 Mg/ml) 75 ml 1X ONCE IV 05/05/17 11:30 05/05/17 11:31 DC 05/05/17 11:35 EKG EKG [] Radiology/Procedures Radiology/Procedures CT scan abdomen pelvis: IMPRESSION: 1. Cholelithiasis. 2. Hepatic steatosis.[] Course & Med Decision Making Course & Med Decision Making Pertinent Labs and Imaging studies reviewed. (See chart for details) ED course: Patient was seen and examined emergency room CBC, CMP, lipase, UA, and urine break, CT scan of the pelvis were ordered 1224: Patient was reexamined and feeling much better to the point where she is able to fall asleep in no acute distress. Made patient aware of CT findings in regards to cholelithiasis and recommended she follow up with PCP for further evaluation of her gallstones however she has no signs of acute cholecystitis. Patient is comfortable being discharged home. MDM: After reviewing the chart, CC/HPI/PMH, physical exam, [lab results], [ radiological results], I do not believe the patient has intra-abdominal emergency warranting further workup and/or admission at this time. Patient was made aware of her cholelithiasis however showed no signs of acute cholecystitis warranting further workup or emergent surgical consultation. Recommended patient follow PCP in one to 2 days for further evaluation of her abdominal pain. Patient is stable for discharge. Additional verbal discharge instructions were provided to the patient and that if symptoms get worse or any new symptoms arise that are worrisome to the patient she is to return to the emergency room immediately [] Dragon Disclaimer Dragon Disclaimer This chart was dictated in whole or in part using Voice Recognition software in a busy, high-work load, and often noisy Emergency Department environment. It may contain unintended and wholly unrecognized errors or omissions. Departure Departure: Impression: Primary Impression: Abdominal pain Additional Impressions: Nausea and vomiting Cholelithiasis Disposition: HOME, SELF-CARE Condition: IMPROVED Referrals: DELL GREY (PCP) Patient Instructions: Abdominal Pain (Nonspecific) Additional Instructions: Please follow up with her family doctor next one to 2 days for further evaluation of her gallstones and return if symptoms increase Scripts Ondansetron (ZOFRAN ODT) 4 Mg Tab.rapdis 1 TAB SL Q8HRS, #10 TAB Prov: SYED HATFIELD DO 05/05/17 Problem Qualifiers SYED HATFIELD DO May 05, 2017 10:58
[2017-05-05] MEDS ORDERED: IV NORMAL SALINE 1,000ML 1,000 ML IV ONE (11:00)
[2017-05-05 11:12] LABS: BASO # 0.1 x10^3/uL (0.0-0.2); BASO % 1 % (0-3); EOS # 0.3 x10^3/uL (0.0-0.7); EOS % 2 % (0-3); HEMATOCRIT 37.1 % (36.0-47.0); HEMOGLOBIN 11.6 g/dL (12.0-15.5); LYMPH # 1.6 x10^3/uL (1.0-4.8); LYMPH % 14 % (24-48); MEAN CORPUSCULAR HEMOGLOBIN 21 pg (25-35); MEAN CORPUSCULAR HGB CONC 31 g/dL (31-37); MEAN CORPUSCULAR VOLUME 69 fL (79-100); MONO # 0.3 x10^3/uL (0.0-1.1); MONO % 3 % (0-9); NEUT # 9.3 x10^3uL (1.8-7.7); NEUT % 81 % (31-73); PLATELET COUNT 361 x10^3/uL (140-400); RED BLOOD COUNT 5.43 x10^6/uL (3.50-5.40); RED CELL DISTRIBUTION WIDTH 17.8 % (11.5-14.5); WHITE BLOOD COUNT 11.6 x10^3/uL (4.0-11.0)
[2017-05-05] MEDS ORDERED: ONDANSETRON PF 4 MG/2 ML VIAL. IV ONE (11:15)
[2017-05-05 11:23] LABS: BACTERIA,URINE MANY /HPF (0-FEW); BILIRUBIN,URINE NEG (NEG); CLARITY,URINE CLOUDY; COLOR,URINE YELLOW; GLUCOSE,URINE NEG (NEG); NITRITE,URINE NEG (NEG); RBC,URINE RARE /HPF (0-2); SQUAMOUS EPITHELIAL CELL,UR MANY /LPF; UROBILINOGEN,URINE 0.2 mg/dL (0.2 mg/dL); WBC,URINE OCC /HPF (0-4)
[2017-05-05 11:27] LABS: ALBUMIN 4.1 g/dL (3.4-5.0); ALBUMIN/GLOBULIN RATIO 1.1 (1.0-1.7); CALCIUM 9.2 mg/dL (8.5-10.1); CREATININE 1.2 mg/dL (0.6-1.0); GFR 52.1; TOTAL BILIRUBIN 0.5 mg/dL (0.2-1.0)
[2017-05-05] MEDS ORDERED: IOHEXOL 300 MG/ML 75 ML VIAL. IV ONE (11:30)
[2017-05-05 12:09] LABS: ANISOCYTOSIS PRESENT; HYPOCHROMIA MOD; MICROCYTOSIS MARKED; PLT ESTIMATE ADEQUATE (ADEQUATE)
--- NOTE | 2017-05-05 12:09 | RAD ---
CT of the abdomen and pelvis with contrast, 05/05/2017: History: Nausea and vomiting Multidetector CT imaging was performed following an IV bolus injection of iodinated contrast material. No oral contrast material was administered for this exam. There is mild streaky atelectasis in the lung bases posteriorly. There is probable fatty change in the liver. The liver measures 22 cm in craniocaudad extent. No hepatic mass or bile duct dilatation is seen. There is a partial septation along the inferior aspect of the gallbladder. Small gallstones are evident inferiorly in the gallbladder. No pericholecystic edema is identified. The pancreas is unremarkable. The spleen is of normal size. No renal or adrenal abnormality is detected. The abdominal aorta is unremarkable. No abdominal or pelvic adenopathy is seen. The uterus and ovaries are unremarkable. The bowel loops are not dilated. The appendix is visualized and shows no abnormality. No free air is evident in the abdomen. A trace amount of free fluid is noted in the sac. This amount of fluid can be on a physiologic basis. IMPRESSION: 1. Cholelithiasis. 2. Hepatic steatosis. PQRS Compliance Statement: One or more of the following individualized dose reduction techniques were utilized for this examination: 1. Automated exposure control 2. Adjustment of the mA and/or kV according to patient size 3. Use of iterative reconstruction technique
[2017-05-05] MEDS ORDERED: ONDA4TAB10 SL (12:28)
[2017-05-05 12:48] VITALS: BP 101/59
== END 2017-05-05 12:50 | disposition home or self-care (01) ==
LOC: ER 10:45
DX: K80.20 Calculus of gallbladder without cholecystitis without obstruction (principal); K76.0 Fatty (change of) liver, not elsewhere classified; Z88.0 Allergy status to penicillin; Z88.4 Allergy status to anesthetic agent; Z98.890 Other specified postprocedural states; Z98.51 Tubal ligation status
CPT/HCPCS: 36415; 74177; 80053; 81001; 81025; 83690; 85025; 87086; 96361; 96374; 99285; J2405; Q9967; J7030

== ENCOUNTER 2017-09-17 10:40 | Emergency (ER) | payer BC, OTHER ==
[~2017-09-17] VITALS: Ht 167.6 cm; Wt 106.6 kg
[~2017-09-17 10:40] MED LIST changes: +NAPR-683 PO; -NAPR500T PO; +ONDA4TAB10 SL
[2017-09-17 11:29] LABS: BASO # 0.1 x10^3/uL (0.0-0.2); BASO % 1 % (0-3); EOS # 0.2 x10^3/uL (0.0-0.7); EOS % 3 % (0-3); HEMATOCRIT 32.8 % (36.0-47.0); HEMOGLOBIN 10.4 g/dL (12.0-15.5); LYMPH # 1.9 x10^3/uL (1.0-4.8); LYMPH % 22 % (24-48); MEAN CORPUSCULAR HEMOGLOBIN 21 pg (25-35); MEAN CORPUSCULAR HGB CONC 32 g/dL (31-37); MEAN CORPUSCULAR VOLUME 67 fL (79-100); MONO # 0.4 x10^3/uL (0.0-1.1); MONO % 4 % (0-9); NEUT % 70 % (31-73); PLATELET COUNT 334 x10^3/uL (140-400); RED BLOOD COUNT 4.87 x10^6/uL (3.50-5.40); WHITE BLOOD COUNT 8.6 x10^3/uL (4.0-11.0)
[2017-09-17 11:49] LABS: BARBITURATES NEG (NEG); BENZODIAZEPINES NEG (NEG); CANNABINOIDS NEG (NEG); COCAINE NEG (NEG); METHADONE NEG (NEG); OPIATES POS (NEG); PHENCYCLIDINE NEG (NEG)
[2017-09-17 11:50] LABS: AMPHETAMINE/METHAMPHETAMINE NEG (NEG)
--- NOTE | 2017-09-17 11:51 | PHYS DOC ---
Past History Past Medical History: Asthma, Bipolar, Other Past Surgical History: , Tubal ligation Smoking: Non-smoker Alcohol Use: None Drug Use: None Adult General Chief Complaint Chief Complaint: SUICDAL IDEATION HPI HPI 32-year-old female patient with history of bipolar disorder complaining of suicidal thoughts for the last 10 days that gradually getting worse without any special reason. Patient states she had the plan to sophisticated herself with putting a vent on car exhaust inside the garage and keeps herself. Patient denies homicidal ideation and hallucination. Patient states she has suicidal attempt in January 2017 with cutting her wrist. Patient states she had left knee replacement in July 31, 2017 and currently taking pain medication without acute problem. Patient states she called [facility] today and they recommended to come to ER for evaluation. Review of Systems Review of Systems Constitutional: Denies fever or chills [] Eyes: Denies change in visual acuity, redness, or eye pain [] HENT: Denies nasal congestion or sore throat [] Respiratory: Denies cough or shortness of breath [] Cardiovascular: No additional information not addressed in HPI [] GI: Denies abdominal pain, nausea, vomiting, bloody stools or diarrhea [] : Denies dysuria or hematuria [] Musculoskeletal: Denies back pain, reports joint pain [] Integument: Denies rash or skin lesions [] Neurologic: Denies headache, focal weakness or sensory changes [] Endocrine: Denies polyuria or polydipsia [] All other systems were reviewed and found to be within normal limits, except as documented in this note. Allergies Allergies Allergies Coded Allergies Type Severity Reaction Last Updated Verified Penicillins Allergy Severe Anaphylaxis 05/05/17 Yes lidocaine Allergy Severe Anaphylaxis 05/05/17 Yes procaine Allergy Severe Anaphylaxis 05/05/17 Yes Physical Exam Physical Exam Constitutional: Well developed, well nourished, no acute distress, non-toxic appearance. [] HENT: Normocephalic, atraumatic, bilateral external ears normal, oropharynx moist, no oral exudates, nose normal. [] Eyes: PERRLA, EOMI, conjunctiva normal, no discharge. [] Neck: Normal range of motion, no tenderness, supple, no stridor. [] Cardiovascular:Heart rate regular rhythm, no murmur [] Lungs & Thorax: Bilateral breath sounds clear to auscultation [] Abdomen: Bowel sounds normal, soft, no tenderness, no masses, no pulsatile masses. [] Skin: Warm, dry, no erythema, no rash. [] Back: No tenderness, no CVA tenderness. [] Extremities: No tenderness, no cyanosis, no clubbing, ROM intact, no edema. [] Neurologic: Alert and oriented X 3, normal motor function, normal sensory function, no focal deficits noted. [] Psychologic: Suicidal ideation, judgement normal, depressed mood Current Patient Data Vital Signs Vital Signs Date Time Temp Pulse Resp B/P (MAP) Pulse Ox O2 Delivery O2 Flow Rate FiO2 09/17/17 11:28 98.1 93 18 96 Room Air Lab Results Laboratory Tests Test 09/17/17 11:13 09/17/17 11:18 White Blood Count 8.6 x10^3/uL (4.0-11.0) Red Blood Count 4.87 x10^6/uL (3.50-5.40) Hemoglobin 10.4 g/dL (12.0-15.5) L Hematocrit 32.8 % (36.0-47.0) L Mean Corpuscular Volume 67 fL (79-100) L Mean Corpuscular Hemoglobin 21 pg (25-35) L Mean Corpuscular Hemoglobin Concent 32 g/dL (31-37) Red Cell Distribution Width 17.0 % (11.5-14.5) H Platelet Count 334 x10^3/uL (140-400) Neutrophils (%) (Auto) 70 % (31-73) Lymphocytes (%) (Auto) 22 % (24-48) L Monocytes (%) (Auto) 4 % (0-9) Eosinophils (%) (Auto) 3 % (0-3) Basophils (%) (Auto) 1 % (0-3) Neutrophils # (Auto) 6.0 x10^3uL (1.8-7.7) Lymphocytes # (Auto) 1.9 x10^3/uL (1.0-4.8) Monocytes # (Auto) 0.4 x10^3/uL (0.0-1.1) Eosinophils # (Auto) 0.2 x10^3/uL (0.0-0.7) Basophils # (Auto) 0.1 x10^3/uL (0.0-0.2) Platelet Estimate Pending POC Urine HCG, Qualitative hcg negative (Negative) EKG EKG [] Radiology/Procedures Radiology/Procedures [] Course & Med Decision Making Course & Med Decision Making Pertinent Labs studies reviewed. (See chart for details) Evaluation of patient in ER showed 32-year-old female patient presented to ER because of suicidal ideation with plan. Patient also was evaluated by [facility] staff. Patient had stable vital signs while she was in ER and labs showed UTI and treated with Cipro. Dr. Santos accepted admission to [facility] at 1635. Patient informed about plan of care and agreed with transferring to [facility]. [] Dragon Disclaimer Dragon Disclaimer This electronic medical record was generated, in whole or in part, using a voice recognition dictation system. Departure Departure: Impression: Primary Impression: Suicidal ideation Additional Impression: Urinary tract infection Disposition: 65 XFER TO PSYCH HOSP/UNIT ( [facility] at 1635) Condition: IMPROVED Referrals: DELL GREY (PCP) Problem Qualifiers LENA CROCKETT MD Sep 17, 2017 11:51
[2017-09-17 11:54] LABS: SALIC 0.8 mg/dL (2.8-20.0)
[2017-09-17 11:55] LABS: ACETAMIN < 2 mcg/mL (10-30); ALBUMIN 3.9 g/dL (3.4-5.0); CALCIUM 8.9 mg/dL (8.5-10.1); CREATININE 0.9 mg/dL (0.6-1.0); DIRECT BILIRUBIN 0.1 mg/dL (0.0-0.2); ETHANOL < 10 mg/dL (0-10); GFR 72.1; MAGNESIUM 1.9 mg/dL (1.8-2.4); POTASSIUM 3.6 mmol/L (3.5-5.1); TOTAL BILIRUBIN 0.4 mg/dL (0.2-1.0); TOTAL PROTEIN 7.7 g/dL (6.4-8.2)
[2017-09-17 11:59] LABS: BILIRUBIN,URINE NEG (NEG); CLARITY,URINE CLOUDY; COLOR,URINE YELLOW; GLUCOSE,URINE NEG (NEG); NITRITE,URINE NEG (NEG); UROBILINOGEN,URINE 0.2 mg/dL (0.2 mg/dL)
[2017-09-17 12:00] LABS: BACTERIA,URINE MOD /HPF (0-FEW); HYALINE CASTS, URINE OCC /HPF; SQUAMOUS EPITHELIAL CELL,UR MOD /LPF
[2017-09-17 12:14] LABS: PLT ESTIMATE ADEQUATE (ADEQUATE)
[2017-09-17 12:15] LABS: ANISOCYTOSIS MOD; HYPOCHROMIA SLIGHT; MICROCYTOSIS MOD; POLYCHROMASIA SLIGHT
[2017-09-17 12:16] LABS: OVALOCYTES OCC; TEAR DROP CELLS OCC
[2017-09-17] MEDS ORDERED: oxyCODONE/APAP 5/325 1 TAB TABLET PO ONE (13:15)
[2017-09-17] MEDS ORDERED: CIPROFLOXACIN HCL 500 MG TABLET PO ONE (13:15)
[2017-09-17 13:26] LABS: LI 0.7 mmol/L (0.6-1.2)
[2017-09-17 18:36] VITALS: BP 105/79
== END 2017-09-17 18:35 ==
LOC: ER 10:40 → EEVIPCON 10:40 → ER 18:35
DX: R45.851 Suicidal ideations (principal); N39.0 Urinary tract infection, site not specified; M25.50 Pain in unspecified joint; J45.909 Unspecified asthma, uncomplicated; F31.9 Bipolar disorder, unspecified; Z91.5 Personal history of self-harm; Z96.652 Presence of left artificial knee joint; Z88.0 Allergy status to penicillin; Z88.4 Allergy status to anesthetic agent
CPT/HCPCS: 36415; 80048; 80076; 80178; 80307; 81001; 81025; 83735; 85025; 87086; 99285; G0480; G0479

== ENCOUNTER 2017-10-22 11:35 | Inpatient (IN) | payer BC, OTHER ==
[2017-10-22] VITALS (9 sets, daily range): BP systolic 90–124; BP diastolic 59–77
[~2017-10-22] VITALS: Ht 167.6 cm; Wt 107.5 kg
--- NOTE | 2017-10-22 12:07 | PHYS DOC ---
General Chief Complaint: OVERDOSE Stated Complaint: INTENTIONAL OVERDOSE Time Seen by MD: 11:39 Source: patient, EMS Exam Limitations: no limitations Problems: History of Present Illness Initial Comments Patient is 30-year-old female brought to the ED by EMS with intentional overdose and suicidal ideation. Patient states that approximately 11 AM today she took up to 6 [place] 5-325, and unknown quantity Excedrin headache tablets (67 tabs missing from 100 count bottle). Only physical complaint on arrival is mild drowsiness. 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 She has multiple prior ED visits here for SI or suicidal ideation, three last year and one last month. Timing/Duration: other (11 am) Modifying Factors: improves with other Associated Symptoms: other Allergies: Coded Allergies: Penicillins (Verified Allergy, Severe, Anaphylaxis, 05/05/17) lidocaine (Verified Allergy, Severe, Anaphylaxis, 05/05/17) procaine (Verified Allergy, Severe, Anaphylaxis, 05/05/17) Past Medical History Medical History: other (bipolar, depression, cerebral palsy, hypothyroid, chronic pain, asthma) Surgical History: other (TL, CS, right jonathan cath) Social History Smoker: non-smoker Alcohol: none Drugs: none Review of Systems Constitutional: denies chills, denies diaphoresis, denies fever, malaise Respiratory: denies cough, denies shortness of breath, denies wheezing Cardiovascular: denies chest pain, denies palpitations, denies syncope Gastrointestinal: denies abdominal pain, denies diarrhea, denies nausea, denies vomiting Genitourinary: denies dysuria, denies frequency, denies hematuria Musculoskeletal: see HPI, denies back pain, denies neck pain Psychiatric/Neurological: see HPI, other (chronic right leg weakness uses wheelchair or cane depending on symptoms) Physical Exam General Appearance: no apparent distress Eyes: bilateral eye normal inspection, bilateral eye PERRL, bilateral eye EOMI Ear, Nose, Throat: hearing grossly normal, normal ENT inspection, normal pharynx Neck: non-tender, supple Respiratory: normal breath sounds, no respiratory distress Cardiovascular: normal peripheral pulses, regular rate, rhythm Gastrointestinal: normal bowel sounds, non tender, soft Back: no CVA tenderness, no vertebral tenderness Extremities: non-tender, no calf tenderness Neurologic/Psychiatric: sign carpenter II-XII nml as tested, no motor/sensory deficits ( right leg weakness (chronic)), oriented x 3, depressed affect, other (mildly drowsy easily arousable to verbal stimuli) Orders, Labs, Meds EKG: NSR 77 bpm, prolonged QT 420 ms, no ST segment elevation. Interpreted by me. I discussed pt with poison control extensively. 1500 timed acetaminophen level will be 4 hours post ingestion, if > 150 will require tx. Salycilate levels q2h until declining, > 35 tx bicarb. Otherwise symptomatic treatment. Pertinent labs: Hb 11.1, MCV 66, acetaminophen 34.9, salicylate 12.1, UDS + benzos UA: SE mod, WBC 11-20, LE sm 1353: Initial confusion as to patient's PCP and director clinical information services physician, after clarification Dr Mora has been paged. Repeat acetaminophen level actually decreased, placing in doubt history as stated. IMPRESSIONS: Suicide Attempt (multiple prior attempts) Intentional Overdose (acetaminophen, salycilate, caffeine) Microcytic anemia Bipolar/Depression Contaminated urine specimen (await culture) Departure Time of Disposition: 14:01 Disposition: 09 ADMITTED INPATIENT Condition: GUARDED Additional Instructions: ICU admission Dr. Mora is accepting LUDY PENG DO Oct 22, 2017 12:07
[2017-10-22 12:27] LABS: BASO % 1 % (0-3); EOS # 0.2 x10^3/uL (0.0-0.7); EOS % 2 % (0-3); HEMATOCRIT 34.6 % (36.0-47.0); HEMOGLOBIN 11.1 g/dL (12.0-15.5); LYMPH # 2.2 x10^3/uL (1.0-4.8); LYMPH % 23 % (24-48); MEAN CORPUSCULAR HEMOGLOBIN 21 pg (25-35); MEAN CORPUSCULAR HGB CONC 32 g/dL (31-37); MEAN CORPUSCULAR VOLUME 66 fL (79-100); MONO # 0.4 x10^3/uL (0.0-1.1); MONO % 4 % (0-9); NEUT # 6.8 x10^3uL (1.8-7.7); NEUT % 71 % (31-73); PLATELET COUNT 323 x10^3/uL (140-400); RED BLOOD COUNT 5.21 x10^6/uL (3.50-5.40); RED CELL DISTRIBUTION WIDTH 17.3 % (11.5-14.5); WHITE BLOOD COUNT 9.6 x10^3/uL (4.0-11.0)
[2017-10-22 12:39] LABS: AMPHETAMINE/METHAMPHETAMINE NEG (NEG); BARBITURATES NEG (NEG); BENZODIAZEPINES POS (NEG); CANNABINOIDS NEG (NEG); CLARITY,URINE CLOUDY; COCAINE NEG (NEG); COLOR,URINE YELLOW; METHADONE NEG (NEG); OPIATES POS (NEG); PHENCYCLIDINE NEG (NEG)
[2017-10-22 12:40] LABS: ALBUMIN 3.8 g/dL (3.4-5.0); CREATININE 0.8 mg/dL (0.6-1.0); DIRECT BILIRUBIN 0.1 mg/dL (0.0-0.2); GFR 82.6; MAGNESIUM 1.8 mg/dL (1.8-2.4); POTASSIUM 3.8 mmol/L (3.5-5.1); TOTAL BILIRUBIN 0.3 mg/dL (0.2-1.0); TOTAL PROTEIN 7.8 g/dL (6.4-8.2)
[2017-10-22 12:40] LABS: BILIRUBIN,URINE NEG (NEG); GLUCOSE,URINE NEG (NEG); NITRITE,URINE NEG (NEG); RBC,URINE RARE /HPF (0-2); UROBILINOGEN,URINE 0.2 mg/dL (0.2 mg/dL)
[2017-10-22 12:41] LABS: ACETAMIN 34.9 mcg/mL (10-30); ETHANOL < 10 mg/dL (0-10); SALIC 12.1 mg/dL (2.8-20.0)
[2017-10-22 12:41] LABS: BACTERIA,URINE MOD /HPF (0-FEW); SQUAMOUS EPITHELIAL CELL,UR MOD /LPF
[2017-10-22 12:42] LABS: PREG TEST PT QUAL NEGATIVE (NEG)
[2017-10-22 13:17] LABS: ANISOCYTOSIS SLIGHT; HYPOCHROMIA SLIGHT; PLT ESTIMATE ADEQUATE (ADEQUATE); POLYCHROMASIA SLIGHT
[2017-10-22 13:18] LABS: MICROCYTOSIS MOD; OVALOCYTES OCC; SPHEROCYTES OCC; STOMATOCYTES OCC; TEAR DROP CELLS OCC
--- NOTE | 2017-10-22 13:50 | EKG ---
[address] [address] Test Date: 2017-10-22 Test Time: 12:01:12 Pat Name: VALDEMAR MCMAHAN Department: Room: Gender: F Director Of Diversity And Inclusion: : 1985 Requested By: LUDY PENG Order Number: [id number] Reading MD: Measurements Intervals [place] Rate: 77 P: 19 AL: 130 QRS: 22 QRSD: 80 T: 64 QT: 420 QTc: 477 Interpretive Statements SINUS RHYTHM PROLONGED QT NO SPECIFIC ECG ABNORMALITIES RI6.01 No previous ECG available for comparison
[2017-10-22 15:42] LABS: ACETAMIN 27.3 mcg/mL (10-30)
[2017-10-22] MEDS ORDERED: ONDANSETRON PF 4 MG/2 ML VIAL. IV PRN (15:45)
--- NOTE | 2017-10-22 16:55 | NUR ---
PT is able to verbalize understanding of poc and orientation to unit. Pt admitted to intentionally overdosing on excedrin and lortab. Pt admits she is depressed. PT had medication changed through the guidance center a few weeks ago and was taken off wellbutrin. PT is a 1:1 observation at this time. PT has a large bag of belongings. Donald GODFREY
[2017-10-22] MEDS ORDERED: OXYC10TA45 PO (17:18)
[2017-10-22] MEDS ORDERED: TRAZ150T49 PO (17:18)
[2017-10-22 17:47] LABS: SALIC 18.6 mg/dL (2.8-20.0)
[2017-10-22 18:49] LABS: ACETAMIN 9.9 mcg/mL (10-30); SALIC 16.2 mg/dL (2.8-20.0)
[2017-10-23] VITALS (17 sets, daily range): BP systolic 95–127; BP diastolic 58–75
[2017-10-23] MEDS ORDERED: PANTOPRAZOLE IV 40 MG VIAL. IVP SCH (07:30)
[2017-10-23 07:36] LABS: BASO % 0 % (0-3); EOS # 0.3 x10^3/uL (0.0-0.7); EOS % 3 % (0-3); HEMATOCRIT 35.2 % (36.0-47.0); HEMOGLOBIN 10.8 g/dL (12.0-15.5); LYMPH # 2.9 x10^3/uL (1.0-4.8); LYMPH % 28 % (24-48); MEAN CORPUSCULAR HEMOGLOBIN 21 pg (25-35); MEAN CORPUSCULAR HGB CONC 31 g/dL (31-37); MEAN CORPUSCULAR VOLUME 68 fL (79-100); MONO # 0.4 x10^3/uL (0.0-1.1); MONO % 4 % (0-9); NEUT # 6.7 x10^3uL (1.8-7.7); NEUT % 65 % (31-73); PLATELET COUNT 288 x10^3/uL (140-400); RED BLOOD COUNT 5.21 x10^6/uL (3.50-5.40); RED CELL DISTRIBUTION WIDTH 17.9 % (11.5-14.5); WHITE BLOOD COUNT 10.2 x10^3/uL (4.0-11.0)
[2017-10-23 08:18] LABS: ALBUMIN 3.6 g/dL (3.4-5.0); CREATININE 0.9 mg/dL (0.6-1.0); GFR 72.1; POTASSIUM 3.9 mmol/L (3.5-5.1)
[2017-10-23 08:32] LABS: TOTAL BILIRUBIN 0.3 mg/dL (0.2-1.0); TOTAL PROTEIN 7.1 g/dL (6.4-8.2)
[2017-10-23 08:51] LABS: ACETAMIN < 2.0 mcg/mL (10-30); SALIC 8.4 mg/dL (2.8-20.0)
[2017-10-23] MEDS ORDERED: hydrOXYzine PAMOATE 25 MG CAPSULE PO PRN (10:00)
[2017-10-23] MEDS ORDERED: LEVOTHYROXINE 175 MCG TABLET PO SCH (10:15)
[2017-10-23] MEDS ORDERED: LURASIDONE 40 MG TABLET. PO SCH (10:15)
[2017-10-23] MEDS ORDERED: LITHIUM CARBONATE 300 MG TABLET PO SCH (10:15)
--- NOTE | 2017-10-23 10:28 | PDOC1 ---
History and Physicial Patient is 30-year-old female brought to the ED by EMS with intentional overdose and suicidal ideation. Patient states that approximately 11 AM today she took up to 6 [place] 5-325, and unknown quantity Excedrin headache tablets (67 tabs missing from 100 count bottle). Only physical complaint on arrival is mild drowsiness. 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 She has multiple prior ED visits here for SI or suicidal ideation, three last year and one last month. FEELS VERY DEPRESSED, HER WELLBUTRIN WAS DISCONTINUED ABOUT A MONTH AGO AND SHE FEELS THIS MAY HAVE SOMETHING TO DO WITH IT. ALSO SOCIAL ISSUES. PAST MEDICAL HISTORY: Significant for depression, cerebral palsy, hypothyroidism, chronic lower extremity pain.ADMISSION ON 12/15 FOR SUICIDAL IDEATION. HAS HAD PRIOR ADMITS FOR DEPRESSION, ONE AT [facility], BUT WAS ONLY FOR 4-5 DAYS PAST SURGICAL HISTORY: Significant for 2 C-sections. ALLERGIES: She is allergic to PENICILLIN, LIDOCAINE, and PROCAINE. MEDICATIONS: She is currently on the following medications: She is gabapentin 300 mg at bedtime, hydroxyzine pamoate 25 mg 3 times a dayprn, hydrocodone unknown dose, levothyroxine 175 mcg once a day, lithium carbonate 450 mg p.o. b.i.d., lurasidone 120po daily, Trazadone 150 mg at hs. mg daily, prazosin 1 mg at bedtime, tizanidine 4 mg every 8 hours FAMILY HISTORY: She has 1 younger brother, who is healthy. Her father is alive at age of 56 and know to have hypertension. Mother is alive and known to have hypothyroidism. SOCIAL HISTORY: She is , has 4 children, one of them the youngest is adopted. She does not smoke, drink alcohol or use any recreational drugs. ROS; INSOMNIA, CHRONIC PAIN, DENIES FEVER, SOB, CHEST PAIN, POSITIVE FOR DEPRESSION PHYSICAL EXAM: 32-year-old in no acute distress HEENT normal Lungs clear to auscultation Heart avascular irregular rhythm and rate Abdomen soft nontender no masses palpated Memories without edema Gait was not examined Neurologically grossly intact but has cerebral palsy Cranial nerves intact Mood depressed Labs were reviewed initially Tylenol level 34.9 now is nondetecTABLE. Salicylate level normal. Assessment #1 depressive disorder with suicide attempt #2 initially elevated Tylenol level but not really full range did not require MUCOMIST #3 cerebral palsy #4 chronic depression #5 bipolar disorder Plan:MEDICALLY STABLE FOR TRANSFER TO [facility]. Problems: CORAL HENSLEY DO Oct 23, 2017 10:28
[2017-10-23 14:00] LABS: LI 0.5 mmol/L (0.6-1.2)
[2017-10-23] MEDS ORDERED: ONDANSETRON ODT 4 MG TAB.RAPDIS PO SCH (14:00)
--- NOTE | 2017-10-23 17:34 | NUR ---
Pt has been accepted to [facility]. Report given to EPIFANIO Soriano. Pt informed of plan of care and verbalized understanding. Attempting to call EMS now for transportation.
--- NOTE | 2017-10-23 18:28 | NUR ---
Pt left via EMS for [facility]. present at time of transfer. Pt had one bag packed for hospitalization; took the other two patient belongings bags and her cane. Pt brought wheelchair for pt and EMS took that with them. Right chest port de-accessed without complication. Transfer line called at [place] and notified them of patient departure.
[2017-10-23] MEDS ORDERED: traZODone 150 MG TABLET. PO SCH (21:00)
[2017-10-23] MEDS ORDERED: PRAZOSIN 1 MG CAPSULE. PO SCH (21:00)
[2017-10-23] MEDS ORDERED: GABAPENTIN 300 MG CAPSULE. PO SCH (21:00)
== END 2017-10-23 18:37 | DRG 918 ==
LOC: ER 11:35 → EEVIPCON 16:41 → ICU 16:41
PROVIDERS: ADMIT Family Medicine; ATTEND Family Medicine
DX: T39.1X2A Poisoning by 4-Aminophenol derivatives, intentional self-harm, initial encounter (principal); D50.9 Iron deficiency anemia, unspecified; T43.612A Poisoning by caffeine, intentional self-harm, initial encounter; T39.092A Poisoning by salicylates, intentional self-harm, initial encounter; F31.9 Bipolar disorder, unspecified; G80.9 Cerebral palsy, unspecified; E03.9 Hypothyroidism, unspecified; G89.29 Other chronic pain; J45.909 Unspecified asthma, uncomplicated; Z88.0 Allergy status to penicillin; Z88.8 Allergy status to other drugs, medicaments and biological substances; Z79.899 Other long term (current) drug therapy; Z82.49 Family history of ischemic heart disease and other diseases of the circulatory system; Y92.89 Other specified places as the place of occurrence of the external cause
CPT/HCPCS: 36415; 80048; 80053; 80076; 80178; 80307; 81001; 83605; 83735; 84703; 85025; 85610; 85730; 87086; 87641; 93005; G0480; 99285-25; G0479